=== PATIENT | male | born 2005 | race Caucasian/White ===

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

== ENCOUNTER 2023-03-09 19:28 | Emergency (ER) | payer SELFPAY ==
[2023-03-09] MEDS ORDERED: Cephalexin 500 MG Cap PO ONE (20:30)
[2023-03-09] MEDS ORDERED: Diphtheria,Pertussis(Acell),Tetanus Vaccine 0.5 ML Syringe IM ONE (20:30)
== END 2023-03-09 20:54 | disposition home or self-care (01) ==
LOC: MW.ED 19:28
DX: T23.252A Burn of second degree of left palm, initial encounter (principal); Z23 Encounter for immunization; X08.8XXA Exposure to other specified smoke, fire and flames, initial encounter
CPT/HCPCS: 90471; 90715; 99283; A9270